=== PATIENT | male | born 1940 | race Two or more races ===

== ENCOUNTER 2018-02-17 09:49 | Outpatient (CLI) | payer OTHER | END 2018-02-17 09:55 | disposition home or self-care (01) | LOC: RAD 09:49 | DX: J44.9 Chronic obstructive pulmonary disease, unspecified (principal); I51.7 Cardiomegaly; I70.0 Atherosclerosis of aorta ==

== ENCOUNTER 2018-03-08 10:07 | Outpatient (CLI) | payer OTHER | END 2018-03-08 12:00 | disposition home or self-care (01) | LOC: NUCLEAR 10:07 | DX: M81.0 Age-related osteoporosis without current pathological fracture (principal) ==